=== PATIENT | female | born 1975 | race Caucasian/White ===

== ENCOUNTER 2020-08-01 10:52 | Outpatient (REF) | payer MEDICAID, SELFPAY ==
--- NOTE | 2020-08-01 09:00 | PAPFT_PTH ---
PATIENT: Cheryl Celis LOC: [facility] U#:[id number] AGE/SX: 44/F ROOM: RE08/01/[address]: Halley Rojas : 1975 BED: DIS: 08/01/2020 SPEC #: [id number] RECD: 08/01/20 12:58 STATUS: JUDI CONNOR #: [id number] DANIEL: 08/01/20 09:[address]: Halley Rojas DEPT: [facility] Cytology RECD BY: Dennise Monteiro Tissues: 1 - CX/ENDOCX FOR PAP SMEARS Procedures: PAP THIN PREP/[facility] Screening HPV DNA PROBE Comments: [id number] (CHLAMYDIA/GC)
[2020-08-01 14:41] LABS: Calculated LDL 178 mg/dL (<100); Cholesterol 264 mg/dL (<200); Glucose 84 mg/dL (74-106); HDL Cholesterol 64 mg/dL (40-60); TSH (W/Ref FT4) 1.15 uIU/mL (0.36-3.74); Triglyceride 114 mg/dL (<150)
[2020-08-03 15:42] LABS: Chlamydia Result Negative (Negative); GC Result Negative (Negative)
== END 2020-08-01 11:12 ==
LOC: NCHCN 10:52
PROVIDERS: PCP Nurse Practitioner Family; Visit Provider Nurse Practitioner Family
DX: Z12.4 Encounter for screening for malignant neoplasm of cervix (principal); Z11.51 Encounter for screening for human papillomavirus (HPV); Z11.3 Encounter for screening for infections with a predominantly sexual mode of transmission; R63.4 Abnormal weight loss; Z13.1 Encounter for screening for diabetes mellitus; Z13.220 Encounter for screening for lipoid disorders
CPT/HCPCS: 80061; 82947; 87491; 87591; 88142; 84443; 87624

== ENCOUNTER 2020-08-24 00:50 | Outpatient (CLI) | payer MEDICAID, SELFPAY ==
--- NOTE | 2020-08-24 11:24 | DI.MAMMO_ITS ---
EXAM: MAMMO SCREENING CLINICAL HISTORY: SCREENING, Z12.39. TECHNIQUE: Bilateral full field digital CC and MLO mammographic images were obtained with 3D tomosyn thesis and utilizing computer aided detection (CAD). COMPARISON: None. This is a baseline mammogram on this 44-year-old patient. FINDINGS: Fibroglandular tissue is dense, this decreasing the sensitivity for finding hidden underlying lesions . In the left breast there is a subtle suggestion of a noncalcified nodular density located medially, a pproximately 5 cm in from the nipple. There are no malignant-appearing microcalcification groups in this region or elsewhere in either breast. On the 3D MLO view of the left breast there is a dumbbell -shaped noncalcified nodule located laterally which measures 5 x 3 millimeters and located 3.5 cm in from the nipple. In the opposite-right breast there is a noncalcified nodule noted posteriorly which measures 6 x 4 mi llimeters and exhibits a notch-probably a benign lymph node up again suggest wall posteriorly. No ot her nodules evident in the breasts. There is no significant architectural distortion nor skin thick ening-retraction. IMPRESSION: Dense bilateral fibroglandular tissue. Bilateral nodules as described above. Spot compression views plus breast ultrasound recommended. BI-RADS Category 0 - Assessment Incomplete: Need additional imaging evaluation Breast Density - Category C - Heterogeneously dense Breast density Category C or D implies that the patient has dense breast tissue. Dense breast tissue can make it harder to find cancer on a mammogram. Dense breast tissue is also associated with an incr eased risk of breast cancer. This information about the result of the mammogram report was provided to the patient to raise their awareness. Use this report when you speak with the patient about their risks for breast cancer, which includes their family history. At that time, you may recommend additional screening tests (Ultrasoun d or MRI) as these tests may add significant information. A negative radiographic report should not delay biopsy if a dominant or clinically suspicious mass is present. Up to ten percent of cancers are not identified on mammography. A negative report may reinforce clinical impression. Adenosis and dense breasts may obscure an underlying neoplasm. False positive reports average 6 to 10%. Patient will receive a letter notifying them of these results.
== END 2020-08-24 00:51 ==
PROVIDERS: PCP Nurse Practitioner Family; Visit Provider Nurse Practitioner Family
DX: Z12.31 Encounter for screening mammogram for malignant neoplasm of breast (principal); R92.8 Other abnormal and inconclusive findings on diagnostic imaging of breast
CPT/HCPCS: 77063; 77067

== ENCOUNTER 2020-09-01 04:01 | Outpatient (CLI) | payer MEDICAID, SELFPAY ==
--- NOTE | 2020-09-01 | DI.MAMMO_ITS ---
EXAM: MG MAMMO SCREEN CALL BACK BI CLINICAL HISTORY: F/U MAMMO, LT NODULAR DENSITY,LT BREAST NODULE,DENSE TISSUE,RT NODULE TECHNIQUE: Spot compression views and tomographic imaging were performed. COMPARISON: 24 August 2020 FINDINGS: Spot compression views left breast:No suspicious masses or suspicious microcalcifications are seen. No persistent abnormality is seen on the additional views performed. The findings are consistent wit h overlying fibroglandular tissue. Spot compression view right breast: A persistent smoothly marginated area of nodularity which has the appearance of an intramammary lymph node. No suspicious features. IMPRESSION: BI-RADS Category 1, Negative mammogram. Yearly screening mammography is recommended. Breast Density - Category C - Heterogeneously dense
== END 2020-09-01 04:21 ==
PROVIDERS: PCP Nurse Practitioner Family; Visit Provider Nurse Practitioner Family
DX: Z12.31 Encounter for screening mammogram for malignant neoplasm of breast (principal); R92.8 Other abnormal and inconclusive findings on diagnostic imaging of breast; N64.59 Other signs and symptoms in breast
CPT/HCPCS: 77063; 77067

== ENCOUNTER 2021-01-17 17:30 | Outpatient (REF) | payer MEDICAID, SELFPAY | END 2021-01-17 17:31 | disposition home or self-care (01) | LOC: NCHCN 17:30 | PROVIDERS: PCP Nurse Practitioner Family; Visit Provider Registered Nurse | DX: R30.9 Painful micturition, unspecified (principal) | CPT/HCPCS: 87077; 87086; 87186 ==

== ENCOUNTER 2021-11-03 17:01 | Outpatient (REF) | payer MEDICAID, SELFPAY ==
--- OUTSIDE RECORDS SUMMARY | 2021-11-03 17:05 | XMS_ITS ---
:1975 Author Care Team Providers Name Role Phone HARRISON ALEX FERRO Primary Care Provider [phone] Allergies None recorded. Medications None recorded. Problems None recorded. Procedures None recorded. Results Lab Results None recorded. Past Encounters 06/04/2021 Backache; Shoulder Girdle Weakness Giulia Gonyaw, PT: [address] [place] [phone], Ph. 04/27/2021 Backache; Shoulder Girdle Weakness Giulia Gonyaw, PT: [address] [place] [phone], Ph. 04/13/2021 Backache; Shoulder Girdle Weakness Giulia Gonyaw, PT: [address] [place] [phone], Ph. 03/15/2021 Backache; Shoulder Girdle Weakness Giulia Gonyaw, PT: [address] [place] [phone], Ph. 03/02/2021 Backache; Shoulder Girdle Weakness Giulia Gonyaw, PT: [address] [place] [phone], Ph. Social History None recorded. Vaccine List None recorded. Plan of Care Reminders Provider Appointments None ? ? recorded. Lab None ? ? recorded. Referral None ? ? recorded. Procedures None ? ? recorded. Surgeries None ? ? recorded. Imaging None ? ? recorded. Vitals None recorded.
--- OUTSIDE RECORDS SUMMARY | 2021-11-03 17:05 | XMS_ITS | Encounter Summary ---
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 findings Encounter for screening for malignant neoplasm of cervix CHLAMYDIA/N. Today 08/01/2020 9:00 Results for this GONORRHOEAE AMPLIFIED EST proced ure are in RNA, THINPREP the results section. HUMAN PAPILLOMAVIRUS Today 08/01/2020 9:00 Encounter for Re sults for this (HPV) DETECTION-HIGH EST general adult proced ure are in RISK TYPES medical examination the resu lts without abnormal section. findings Encounter for screening for malignant neoplasm of cervix documented in this encounter Results HUMAN PAPILLOMAVIRUS (HPV) DETECTION-HIGH RISK TYPES (08/01/2020 9:00 EST) Human Papillomavirus NegativeComment: No Negative [facility] (HPV) Detection-High E6 or E7 mRNA is CENTER LABORATOR Y Types detected from HPV SERVICES types 16,18,31,33,35,39,45 ,51,52,56,58,59,66, and 68 by electrode cleaning machine operator mediated amplification. Specimen Pap Test - Cervix and/or Endocervix Performing Organization Address City/State/ZIP Code Phon e Number [facility] [address] [place] [address] SERVICES PAP TEST (08/01/2020 9:00 EST) Specimens A. Cervix and/or [facility] Endocervix , ThinPrep CENTER Imaging System with LABORATORY Manual Evaluation SERVICES Specimen Adequacy Satisfactory for [facility] Evaluation - [place] transformation zone LABORATORY component present SERVICES General Negative for [facility] intraepithelial [place] lesion or malignancy LABORATORY SERVICES Attestation . [facility] CENTER signed by WESLEY Ray CT(ASCP) on SERVICES 08/11/2020 at 152 4 Clinical History See below [facility] SERVICES HPV The result for the Human Pap illomavirus (HPV) Detection-High Risk Types is Negative. No E6 or E7 mRNA is detected from HPV types 16,18,31,33,35,39,45,51,52,56,58,59,66, and 68 by electrode cleaning machine operator mediated [facility] amplification.Testing was p erformed on specimen [id number] and was resulted on 08/11/2020 1515 EST by KAYA, LAB INSTRUMENT RESULTS IN CENTER LABORATORY SERVICES Performing Lab [facility] Scanned Images [facility] SERVICES Specimen Pap Test - Cervix and/or Endocervix Performing Organization Address City/State/ZIP Code Phon e Number [facility] [address] [place] [address] SERVICES CHLAMYDIA/N. GONORRHOEAE AMPLIFIED RNA, THINPREP (08/01/2020 9:00 EST) Pathologist Sig nature Gonococcus Result Negative Negative [facility] SERVICES Chlamydia Result Negative Negative [facility] SERVICES Specimen Pap Test - Cervix and/or Endocervix Performing Organization Address City/State/ZIP Code Phon e Number [facility] [address] [place] [address] SERVICES documented in this encounter Visit Diagnoses Diagnosis Encounter for general adult medical exam ination without abnormal findings Unspecified general medical examination Encounter for screening for malignant ne oplasm of cervix Screening for malignant neoplasm of the cervix documented in this encounter
[2021-11-05 11:29] LABS: COVID-19 RT-PCR UVMMC Result Negative (Negative)
== END 2021-11-03 17:02 | disposition home or self-care (01) ==
LOC: NCHCN 17:01
PROVIDERS: PCP Nurse Practitioner Family; Visit Provider Physician Assistant Medical
DX: J02.9 Acute pharyngitis, unspecified (principal); Z20.822 Contact with and (suspected) exposure to COVID-19; J06.9 Acute upper respiratory infection, unspecified
CPT/HCPCS: 87077; 87449; U0003; 87070

== ENCOUNTER 2021-11-21 14:13 | Outpatient (REF) | payer MEDICAID, SELFPAY ==
[2021-11-23 11:33] LABS: COVID-19 RT-PCR UVMMC Result Negative (Negative)
== END 2021-11-21 14:14 | disposition home or self-care (01) ==
LOC: NCHCN 14:13
PROVIDERS: PCP Nurse Practitioner Family; Visit Provider Physician Assistant Medical
DX: J02.9 Acute pharyngitis, unspecified (principal); Z20.822 Contact with and (suspected) exposure to COVID-19
CPT/HCPCS: 87077; U0003; 87070

== ENCOUNTER 2021-12-10 14:52 | Outpatient (REF) | payer MEDICAID, SELFPAY | END 2021-12-10 14:53 | disposition home or self-care (01) | LOC: LBN 14:52 | PROVIDERS: PCP Nurse Practitioner Family; Visit Provider Nurse Practitioner Family | DX: R35.0 Frequency of micturition (principal) | CPT/HCPCS: 87077; 87086; 87186 ==

== ENCOUNTER 2023-06-19 11:23 | Outpatient (REF) | payer OTHER, SELFPAY ==
--- OUTSIDE RECORDS SUMMARY | 2023-06-19 11:31 | XMS_ITS | Continuity of Care Document ---
Author Name Unknown Organization [facility] Address [address] [place] [address] Care Team Providers Care Laser Cutter Name Role Phone Halley Rojas Primary Care Physician Encounter [facility] Date(s): 05/16/23 - 05/16/[address] [phone] Discharge Disposition: Home or Self Care Attending Physician: Halley Rojas OPERATIONAL RISK MANAGER Admitting Physician: Halley Rojas NP Referring Physician: Halley Rojas OPERATIONAL RISK MANAGER Social History Social History Type Response Sex Female Patient Care team information Care Team Personnel Name: Halley Rojas OPERATIONAL RISK MANAGER Position: No Access Member Role: Primary Care Physician Address: Address: [address] [place] [phone] [place] Care Team Related Persons Name: SANDRA VELIZ
[2023-06-19 15:10] LABS: BUN 13 mg/dL (7-18); Calcium 9.5 mg/dL (8.5-10.1); Calculated LDL 162 mg/dL (<100); Chloride 103 mmol/L (98-107); Cholesterol 248 mg/dL (<200); Estimated GFR 69.49 (mL/min/1.73m2); Glucose 87 mg/dL (74-106); HDL Cholesterol 69 mg/dL (40-60); Potassium 4.3 mmol/L (3.5-5.1); Sodium 138 mmol/L (136-145); Triglyceride 85 mg/dL (<150)
[2023-06-20 10:32] LABS: Hepatitis C Ab w Rflx HCV PCR Negative (Negative)
[2023-06-20 10:34] LABS: HIV-1/2 Ag & Ab Screen Negative (Negative)
== END 2023-06-19 11:24 | disposition home or self-care (01) ==
LOC: NCHCN 11:23
PROVIDERS: PCP Nurse Practitioner Family; Visit Provider Nurse Practitioner Family
DX: Z00.00 Encounter for general adult medical examination without abnormal findings (principal)
CPT/HCPCS: 80048; 80061; 86803; 87389; 84443